=== PATIENT | male | born 1970 | race Caucasian/White ===

== ENCOUNTER 2023-10-26 06:34 | Emergency (ER) | payer OTHER, SELFPAY ==
[2023-10-26 06:39] VITALS: BP 208/125
[2023-10-26 08:09] VITALS: BP 152/91
[2023-10-26 08:10] VITALS: BMI 47.6
[2023-10-26 08:12] LABS: % Basophils 0.7 % (0-2); % Eosinophils 1.7 % (0-6); % Immature Granulocytes 0.5 % (0-0.5); % Lymphocytes 18.9 % (20.5-51.1); % Monocytes 5.7 % (1.7-9.3); % Neutrophils 72.5 % (42.2-75.2); Absolute Basophils 0.1 10^3/uL (0-0.2); Absolute Eosinophils 0.2 10^3/uL (0-0.7); Absolute Immature Granulocytes 0.1 10^3/uL (0-0.05); Absolute Lymphocytes 1.8 10^3/uL (1.2-3.4); Absolute Monocytes 0.6 10^3/uL (0.1-0.6); Hematocrit 39.6 % (39.0-52.0); Hemoglobin 13.1 g/dL (13.0-18.0); Mean Corp Hgb Conc. 33.1 g/dL (33.0-37.0); Mean Corpuscular Hgb 28.7 pg (27.0-31.0); Mean Corpuscular Volume 86.8 fL (80.0-94.0); Mean Platelet Volume 9.2 fL (7.4-10.4); Nucleated Red Blood Cells % 0 % (-); Platelet Count 282 10^3/uL (130-400); Red Blood Cell Count 4.56 10^6/uL (4.70-6.10); Red Cell Dist. Width 12.9 % (11.5-14.5); White Blood Cell Count 9.7 10^3/uL (4.8-10.8)
[2023-10-26 08:25] LABS: ALT (SGPT) 77 U/L (0-50); AST (SGOT) 50 U/L (17-59); Albumin 4.9 g/dl (3.5-5.0); Alkaline Phosphatase 54 U/L (38-126); Blood Urea Nitrogen 14 mg/dl (9-20); Calcium 9.5 mg/dl (8.4-10.2); Carbon Dioxide 24 mmol/L (22-30); Chloride 108 mmol/L (98-107); Estimated Creatinine Clearance > 125 ml/min; Glucose 118 mg/dl (70-99); Potassium 4.2 mmol/L (3.5-5.1); Sodium 139 mmol/L (135-145); Total Bilirubin 0.4 mg/dl (0.2-1.3); Total Protein 7.6 g/dl (6.3-8.2); eGFR > 60.00
--- NOTE | 2023-10-26 08:33 | ED.GENMED ---
History of Present Illness
General
Chief Complaint: Throat Problem
Source: patient
Exam Limitations: none
Time Seen by Provider: 10/26/23 07:35
Nursing documentation reviewed up to this point in time: agreed with
Travel History
Have you had any contact with someone who has COVID-19?: No
Do you have any symptoms of coronavirus? Fever > 100 degrees, chills, cough, shortness of breath, sore throat, loss of taste or smell, muscle aches, or headache?: No
History of Present Illness
History of Present Illness:
63-year-old male with no past medical history documented, states he has had 3 days of dry mouth and this a.m. feeling like something is stuck in his throat like he has to cough up plug of mucus. He had no difficulty swallowing or speaking. He
states he had a similar episode a few months ago for 1 or 2 days but it went away.
Pt also c/o low back pain he had 3 months ago for 3 weeks, then subsided, returned 2 weeks ago. It is non radiating, worse in a.m. or middle of night getting out of bed.
States his testicles are 'going in.'
Has been urinating and moving bowels normally daily. Denies weakness or numbness in extremities, denies abdominal pain.
Also has had intermittent left upper chest pains, not there now
He saw PCP 1.5 yrs ago as his testicles were 'going in' for past 2 years and was told this was due to his obesity and recommended he lose weight.
Past History
Past History
ED Past Medical History: None
ED Past Surgical History: None
Social History
Personal:
Living: with family
Employment: Employed
Review of Systems
Review of Systems
Allergies reviewed?: Yes
All Other Systems: ROS reviewed and negative except as documented in HPI and ROS
Constitutional: Denies fever, fatigue or chills
EENT: Reports other (sensation of something in his throat, like he has to clear his throat); Denies sore throat
Respiratory: Denies cough or trouble breathing
Cardiac: Denies chest pain
ABD/GI: Denies abdominal pain, nausea, vomiting, diarrhea or anorexia
: Denies dysuria, frequency, difficulty voiding or urgency
Musculoskeletal: Reports back pain (low back pain); Denies neck pain
Skin: Reports no symptoms
Neurological: Reports no symptoms
Phy Exam
Physical Exam
Physical Exam:
GENERAL: No acute distress. A&Ox3.
CONSTITUTIONAL: Afebrile.
EYES: Clear, conjunctivae normal
Neck: Supple, palpable mass (thyroid?). non tender. speaking and swallowing well.
ENMT: moist mucus membranes, Pharynx nl
RESPIRATORY: Regular respirations, nonlabored, lungs clear.
CARDIOVASCULAR: Regular rate and rhythm, no murmurs, no rubs.
GI: Morbidly obese. Soft, nontender, normal BS
MUSCULOSKELETAL: Moves with ease. Well perfused. No edema
SKIN: Warm, dry, pink
PSYCH: Normal mood and affect. Well kept, interactive and appropriate
NEUROLOGIC: Awake, alert and oriented. No focal neurological deficits
Course
Orders/Labs/Results
Orders:
Orders
10/26/23 07:49
EKG [Electrocardiogram (*1)] Urgent
Reason for Study: Hypertension, Benign
EKG- Treatment ONCE
10/26/23 07:50
Soft Tissue, Neck [CR Soft Tissue Neck ] Urgent
Comment:
Reason For Exam: globus
10/26/23 08:06
Complete Blood Count/With Diff Urgent
Comprehensive Metabolic Panel Urgent
TSH Reflex To Free T4 Urgent
Troponin I Urgent
10/26/23 08:36
Lumbar Spine, 2 or 3 View [CR Lumbar Spine 2 Or 3 Views] Urgent
Comment:
Reason For Exam: acute on chronic low back pain
10/26/23 08:47
CT Neck With Iv Contrast Urgent
Comment:
Reason For Exam: feels lump in throat
10/26/23 09:03
Rapid Strep Group A Urgent
[facility] Source: Throat/Pharynx
Specimen Description:
Date Specimen was Collected: 10/26/23
Time Specimen was Collected: 09:01
Throat Culture [Throat Culture, Comprehensive] Urgent
[facility] Source: Throat/Pharynx
Specimen Description:
Date Specimen was Collected: 10/26/23
Time Specimen was Collected: 09:02
Abnormal Lab Results
10/26/23
08:06
RBC 4.56 L 10^6/uL
(4.70-6.10)
Abs Immat Gran (auto) 0.1 H 10^3/uL
(0-0.05)
Absolute Neuts (auto) 7.0 H 10^3/uL
(1.4-6.5)
Lymphocytes % 18.9 L %
(20.5-51.1)
Chloride 108 H mmol/L
(98-107)
Glucose 118 H mg/dl
(70-99)
ALT 77 H U/L
(0-50)
10/26/23 08:06
10/26/23 08:06
Vital Signs
Initial and Last Documented VS:
Initial Vital Signs
Temp Pulse Resp BP Pulse Ox
98.2 F 111 16 208/125 97
10/26/23 06:39 10/26/23 06:39 10/26/23 06:39 10/26/23 06:39 10/26/23 06:39
Last Documented Vital Signs
Temp Pulse Resp BP Pulse Ox
98.2 F 86 16 159/97 95
10/26/23 06:39 10/26/23 09:09 10/26/23 06:39 10/26/23 10:48 10/26/23 10:45
MDM/Problems Addressed
Differential Diagnosis Includes:
Enlarged thyroid, globus, pharyngitis
Acute on chronic low back pain, morbid obesity, DJD
MDM/Problems Addressed:
63-year-old male with no past medical history documented, states he has had 3 days of dry mouth and this a.m. feeling like something is stuck in his throat like he has to cough up plug of mucus. He had no difficulty swallowing or speaking. He
states he had a similar episode a few months ago for 1 or 2 days but it went away.
Pt also c/o low back pain he had 3 months ago for 3 weeks, then subsided, returned 2 weeks ago. It is non radiating, worse in a.m. or middle of night getting out of bed.
States his testicles are 'going in.'
Has been urinating and moving bowels normally daily. Denies weakness or numbness in extremities, denies abdominal pain.
He saw PCP 1.5 yrs ago as his testicles were 'going in' for past 2 years and was told this was due to his obesity and recommended he lose weight.
Also has had intermittent left upper chest pains, not there now
EKG: NSR
Afebrile, NAD
9:17 AM
CBC normal
CMP normal
Troponin normal
TSH normal
Soft tissue lateral neck x-ray: Appears to be significant enlarged thyroid/mass
Rapid strep neg
Case discussed with Dr. Allen who agrees with CT neck with IV contrast
10:34 AM
IMPRESSION:
No radiopaque foreign body.
Mild prominence of the adenoids and palatine tonsils. Tonsillar homogeneous opacity. No evidence of peritonsillar abscess. The airway is patent. No retropharyngeal soft tissue swelling.
Nothing in today's workup to explain his globus sensation, his low back pain is most likely due to obesity and DJD/arthritis.
Discussed weight loss with him
BP 159/91
Chronic conditions affecting care: HTN and Other (morbid obesity)
*EKG
EKG Intrepretation Date: 10/26/23
Interpretation: normal
Rate: normal
Rhythm: sinus
[place]: normal axis
Interval: normal interval
QRS Pattern: normal QRS
Ischemia: no ischemia
*Critical Care Note
Total Time (30-74mins, 75-104mins- exclusive of procedures): Not Applicable
ED Attending Note
-
Portions of this chart may have been created with voice recognition software.� Occasional wrong word or��sound alike� substitutions may have occurred due to the inherent limitations of voice recognition software.
Discharge Plan
Departure
Patient Disposition: Home (Routine Discharge)
Date of Disposition: 10/26/23
Time of Disposition: 10:39
Patient with high blood pressure during this ER visit?: Yes
Condition: Fair
Discharge Problem:
Globus sensation, Morbid obesity with BMI of 45.0-49.9, adult, Low back pain
Instructions: Low Back Pain (DC), Weight Loss Tips, Health risks of obesity
Referrals:
Your, doctor [Other] - As needed
UNKNOWN - PT DOES,NOT KNOW [Family Provider] -
Activity Restrictions/Additional Instructions:
As we discussed, your workup here today shows nothing worrisome other than your weight.
Your throat strep test is negative
Your neck xray and CT scan show nothing worrisome
Your lab work is normal
Your EKG is normal
Your low back xray shows some arthritis
You may benefit from a sleep study to see if you have sleep apnea, also try to initiate a weight loss program, goal is to lose 5 lbs every 2 weeks, discuss these with your doctor.
Interventions
Interventions:
*Risk Screen - Suicide Last Done: 10/26/23 06:39
*General Assessment Last Done: 10/26/23 06:39
*Neglect/Abuse Screening Last Done: 10/26/23 06:39
*ED COVID-19 Vaccine History Last Done: 10/26/23 08:04
ED-EENT Assessment Last Done: 10/26/23 10:45
ED-Musculoskeletal Assessment Last Done: 10/26/23 10:45
ED- Pulmonary Assessment Last Done: 10/26/23 10:45
Discharge Date and Time
Print Language: SENEGALESE
[2023-10-26 08:35] LABS: Troponin I < 0.012 ng/ml
[2023-10-26 09:00] VITALS: BP 157/101
[2023-10-26 09:02] LABS: TSH Reflex To Free T4 0.99 uIU/ml (0.47-4.68)
[2023-10-26 10:48] VITALS: BP 159/97
== END 2023-10-26 11:00 | disposition home or self-care (01) ==
LOC: EMR 06:34
PROVIDERS: Registered Nurse; EMERGENCY PHYSICIAN Emergency Medicine
DX: R09.A2 Foreign body sensation, throat (principal); M54.50 Low back pain, unspecified; I10 Essential (primary) hypertension; E66.01 Morbid (severe) obesity due to excess calories; E04.9 Nontoxic goiter, unspecified; Z68.42 Body mass index [BMI] 45.0-49.9, adult
CPT/HCPCS: 99285; 70360; 70491; 72100; 80053; 84443; 84484; 85025; 87070; 87880; 93005; Q9967